=== PATIENT | female | born 1965 | race Caucasian/White ===

== ENCOUNTER → 2019-03-21 | Outpatient (CLI) | payer SELFPAY | PROVIDERS: Family Provider Internal Medicine; Visit Provider Internal Medicine | DX: Z79.51 Long term (current) use of inhaled steroids (principal); M85.80 Other specified disorders of bone density and structure, unspecified site | CPT/HCPCS: 77080 ==

== ENCOUNTER 2019-10-06 11:47 | Outpatient (CLI) | payer MEDICARE, MEDICAID, SELFPAY ==
--- NOTE | 2019-10-06 11:54 | MM_ITS ---
WS: [id number] BILATERAL DIGITAL DIAGNOSTIC MAMMOGRAM MAMMOGRAPHY WITH CAD CLINICAL INFORMATION: 6 MO F/U POST SURGERY RT BREAST COMPARISON: TECHNIQUE: Bilateral CC, MLO, and ML views. FINDINGS: Scattered fibroglandular densities bilaterally. Stable punctate calcifications. Focal asymmetric dens ity upper outer right breast unchanged. Biopsy clip upper outer right breast. Ultrasound is pending. Left breast is unchanged. ULTRASOUND BREAST RIGHT TECHNIQUE: Ultrasound right breast focused area of concern. CLINICAL INFORMATION: 6 MO F/U POST SURGERY RT BREAST COMPARISON: 2018 FINDINGS: Ultrasound right breast the 2:00 position 4 cm from the nipple. Tiny hypoechoic lesion measuring 7 x 3 x 7 mm. This is decreased in size from previous. Recommend return to annual screening mammography. MM/[place] [id number] IMPRESSION: BI-RADS: 2-Benign FOLLOW UP: 1 Year Follow-up Recommend return to annual screening mammography.
== END 2019-10-06 11:48 | disposition home or self-care (01) ==
LOC: RADSHAW 11:53
PROVIDERS: PCP Internal Medicine; Visit Provider Internal Medicine
DX: Z12.31 Encounter for screening mammogram for malignant neoplasm of breast (principal); N64.89 Other specified disorders of breast
CPT/HCPCS: 76642; 77066

== ENCOUNTER 2019-10-31 11:47 | Outpatient (CLI) | payer MEDICARE, MEDICAID, SELFPAY ==
--- NOTE | 2019-10-31 12:43 | XRR_ITS ---
PROCEDURE INFORMATION: Exam: XR Right Knee Exam date and time: 10/31/2019 1:03 PM Age: 54 years old Clinical indication: Pain; Swelling or effusion of joint; Knee; Right; Additional info: Pain and swelling R knee x 3 years TECHNIQUE: Imaging protocol: XR Right knee. Views: 3 views. COMPARISON: CR Knee 3 views, RIGHT* [id number] 04/18/2014 11:48 AM FINDINGS: Bones/joints: There is no evidence for acute fracture or malalignment. No joint space narrowing or osteophyte formation. Soft tissues: Normal. XR/XR knee RT 3V* [id number] IMPRESSION: No acute findings.
== END 2019-10-31 11:48 | disposition home or self-care (01) ==
LOC: RAD 11:51
PROVIDERS: PCP Internal Medicine; Visit Provider Internal Medicine
DX: M25.561 Pain in right knee (principal); M79.89 Other specified soft tissue disorders
CPT/HCPCS: 73562

== ENCOUNTER 2019-12-11 14:16 | Outpatient (CLI) | payer MEDICARE, MEDICAID, SELFPAY ==
--- NOTE | 2019-12-11 14:23 | XRR_ITS ---
PROCEDURE INFORMATION: Exam: XR Right Foot Complete Exam date and time: 12/11/2019 2:40 PM Age: 54 years old Clinical indication: Injury or trauma; Fall; Initial encounter; Blunt trauma; Foot; Right; Injury date: 1 week ago; Additional info: Pain in R foot/s/p fall TECHNIQUE: Imaging protocol: XR Right foot. Views: 3 or more views. COMPARISON: No relevant prior studies available. FINDINGS: Bones/joints: There is no evidence for acute fracture or malalignment. Soft tissues: Normal. XR/XR foot RT min 3V* [id number] IMPRESSION: No acute findings.
== END 2019-12-11 14:17 | disposition home or self-care (01) ==
LOC: RAD 14:20
PROVIDERS: PCP Internal Medicine; Visit Provider Internal Medicine
DX: M79.671 Pain in right foot (principal); W19.XXXA Unspecified fall, initial encounter
CPT/HCPCS: 73630

== ENCOUNTER → 2020-06-18 13:58 | Outpatient (BNVA) | payer MEDICARE, MEDICAID, SELFPAY | PROVIDERS: PCP Internal Medicine; Visit Provider Podiatrist Foot & Ankle Surgery | DX: M25.572 Pain in left ankle and joints of left foot (principal); Z46.89 Encounter for fitting and adjustment of other specified devices; M79.672 Pain in left foot; M72.2 Plantar fascial fibromatosis | CPT/HCPCS: 73610; 73630; 97760; L1902 ==

== ENCOUNTER 2020-06-18 14:49 | Outpatient (CLI) | payer MEDICARE, MEDICAID, SELFPAY | END 2020-06-18 14:50 | disposition home or self-care (01) | LOC: SPT 14:50 | PROVIDERS: PCP Internal Medicine; Visit Provider Podiatrist Foot & Ankle Surgery | DX: Z46.89 Encounter for fitting and adjustment of other specified devices (principal); M79.672 Pain in left foot; M72.2 Plantar fascial fibromatosis | CPT/HCPCS: 97760; L1902 ==

== ENCOUNTER 2020-07-23 16:31 | Outpatient (CLI) | payer MEDICARE, MEDICAID, SELFPAY ==
--- NOTE | 2020-07-23 16:56 | XR_ITS ---
WS: [id number] Lumbar spine, 3 views, 07/23/2020 Clinical Data: PAIN, S/P TRAUMA Comparison: Lateral lumbar spine, 07/16/2016. Findings: No compression fractures or subluxation is seen. Mild degenerative disc narrowing at L3-L4 is seen.. The transverse processes and SI joints are normal. Minimal osteoarthritic spurring at L3-L5 is noted. XR/XR lumbar spine 2-3V* [id number] Impression: 1. Minimal osteoarthritis L3-L5. 2. Degenerative disc narrowing at L3-L4.
--- NOTE | 2020-07-23 16:56 | XR_ITS ---
WS: [id number] Thoracic spine, 3 views, 07/23/2020 Clinical Data: PAIN, S/P TRAUMA Comparison: Thoracic spine, 03/02/2012. Findings: No compression fractures are seen. The disc heights are normal. The paravertebral regions are normal. XR/XR thoracic spine 3V* [id number] Impression: Negative thoracic spine.
== END 2020-07-23 16:32 | disposition home or self-care (01) ==
PROVIDERS: PCP Internal Medicine; Visit Provider Internal Medicine
DX: M54.5 Low back pain (principal); M47.816 Spondylosis without myelopathy or radiculopathy, lumbar region
CPT/HCPCS: 72072; 72100

== ENCOUNTER → 2021-02-17 09:57 | Outpatient (BNVA) | payer MEDICARE, MEDICAID, SELFPAY | PROVIDERS: PCP Internal Medicine; Referring Provider Internal Medicine; Visit Provider Surgery | DX: Z20.822 Contact with and (suspected) exposure to COVID-19 (principal); K64.9 Unspecified hemorrhoids; Z80.0 Family history of malignant neoplasm of digestive organs; R19.7 Diarrhea, unspecified; K92.1 Melena | CPT/HCPCS: 87635 ==

== ENCOUNTER 2021-02-19 09:11 | Day surgery (SDC) | payer MEDICARE, MEDICAID, SELFPAY ==
[2021-02-18 17:20] VITALS: BMI 29.2
[2021-02-19] VITALS (7 sets, daily range): BP systolic 110–136; BP diastolic 60–78; PULSE 60–74; RESP 15–17; TEMP 36.2–36.6; O2SAT 96–98
--- NOTE | 2021-02-19 09:38 | W.PM.OPSUD ---
Surgery/Procedure H&P Update DATE OF PROCEDURE: February 19, 2021 DATE H&P PERFORMED: 02/17/21 H&P UPDATE INFORMATION: I have reviewed H&P completed within last 30 days, I have examined patient prior to procedure and No changes to prior documentation PREOP DIAGNOSIS: Hematochezia, hemorrhoids PLANNED PROCEDURE: Operation Date: 02/19/21 12:40 Proposed Procedures p Hemorroidectomy 14792 K64.9(Not Applicable) - Dick Johnson MD s Colonoscopy 39453 Z80.0(Not Applicable) - Dick Johnson MD
[2021-02-19] MEDS: sodium chloride 0.9% 1,000 ML 30 ML IV (10:10)
--- NOTE | 2021-02-19 10:19 | ANES.PREANE2 ---
Pre-Anesthetic Assessment Pre-Anesthetic Assessment: Height/Weight: Height 1.6 m Weight 74.843 kg Temp Pulse Resp BP Pulse Ox 97.5 F L 62 16 115/60 98 02/19/21 09:54 02/19/21 09:54 02/19/21 09:54 02/19/21 09:54 02/19/21 09:54 Preop Diagnosis: Hematochezia, hemorrhoids Proposed Procedure: Operation Date: 02/19/21 12:40 Proposed Procedures p Hemorroidectomy 76069 K64.9(Not Applicable) - Dick Johnson MD s Colonoscopy 79524 Z80.0(Not Applicable) - Dick Johnson MD Was Beta Florencio taken within 24 hours: Yes Was Clonidine taken within 24 hours: N/A Last intake: Intake Last Liquid Date 02/18/21 Last Liquid Time 19:00 Last Solid Date 02/17/21 Last Solid Time 16:00 Social: Social History: No alcohol and No tobacco Exam: Pre-Anes Outpt Exam: alert, oriented x 3, clear to auscultation bilaterally and regular rate & rhythm Airway: Submandibular: WNL Cervical ROM: WNL MP: 2 Dentition: Chipped Neuropsych: Neuropsych: Anxiety, Depression, HANEY and Neuropathy Anesthetic Plan: ASA status: 2 Anesthesia: Choice Risk of > 500 ml blood loss (7ml/kg in children): No Meds/Allergies Current Medications: Current Medications Generic Name Dose Route Start Last Admin Trade Name Freq PRN Reason Stop Dose Admin Sodium Chloride 1,000 mls @ 30 ml s/hr 02/19/21 09:00 02/19/21 10:10 Sodium Chloride 0.9% IV 02/20/21 08:59 30 mls/hr .Q24H NOHEMI Administration PFSH Anesthesia PFSH: Medical History (Updated 02/17/21 @ 10:24 by Dick Johnson MD) Anxiety Chronic pain Depression Fibromyalgia Hemorrhoids History of nonmelanoma skin cancer Small fiber neuropathy Vitamin B12 deficiency Surgical History (Updated 02/17/21 @ 09:43 by Dick Johnson MD) History of colonoscopy 1988 History of eye surgery socket- wires in place 1984 History of hysterectomy History of tonsillectomy 1966 Family History Mother Psychiatric illness Depression Migraines Thyroid disorder Father Cancer Lung Lung disease Social History Smoking and tobacco status: former smoker Second hand smoke exposure: Yes Alcohol intake: never History of recent travel: No Data Anesthesia Cardiac Studies: No Data to Display
--- NOTE | 2021-02-19 12:13 | PM.OP ---
Operative Report Date of procedure: February 19, 2021 Pre-op Diagnosis: 1. Family history of colon cancer 2. Hematochezia Post-op Diagnosis: 1. Anal fissure 2. Mild sigmoid diverticulosis -repeat colonoscopy in 5 years due to family history Procedure Done: 1. Colonoscopy past splenic flexure without biopsy 2. Banding of hemorrhoid x1 Specimens removed/disposition: Stool studies and culture due to history of diarrhea Surgeon: Dick Johnson Anesthesia: MAC Condition: stable Disposition: PACU Procedure: The patient was taken to the operating room and placed in left lateral position under MAC a digital rectal exam revealed a small grade 1 internal hemorrhoids. The colonoscope was introduced and advanced up to cecum with ileocecal valve and appendicular orifice was visualized. The colon prep was fair. Cecum: Normal Ascending colon: Normal Transverse colon: Normal Descending colon: Normal Sigmoid colon: Mild diverticulosis Rectum: Normal, grade 1 internal hemorrhoid The colonoscope was withdrawn. An anoscope was introduced and there was a small posterior anal fissure noted. There was a grade 1 internal hemorrhoid noted on the left lateral side. The hemorrhoid was grasped above the dentate line and using a band applicator rubber band x2 were applied. The patient was transferred to the recovery room in stable condition.
--- NOTE | 2021-02-19 13:23 | ANE.PACU2 ---
Inpatient post-anesthesia follow up: Airway intact: Yes Vital signs: Temperature 98 F Pulse Rate 64 Respiratory Rate 15 Blood Pressure 121/71 Pulse Oximetry 98 Oxygen Delivery Me thod Room Air Oxygen Flow Rate Fraction of Inspir ed Oxygen Hydration adequate: Yes Nausea and vomiting: No Pain level: 2 Mental status: Baseline
== END 2021-02-19 13:05 | disposition home or self-care (01) ==
PROVIDERS: PCP Internal Medicine; Visit Provider Surgery
PROC: (CPT 45378; principal; 2021-02-19 12:30)
PROC: 0DJD8ZZ Inspection of Lower Intestinal Tract, Via Natural or Artificial Opening Endoscopic (ICD-10-PCS; CPT 45378; 2021-02-19 12:30)
DX: K92.1 Melena (principal); Z80.0 Family history of malignant neoplasm of digestive organs; K60.2 Anal fissure, unspecified; K57.30 Diverticulosis of large intestine without perforation or abscess without bleeding; K64.8 Other hemorrhoids; Z87.891 Personal history of nicotine dependence
CPT/HCPCS: 45378; 46221; 82274; 83630; 87493; 87506; 96365; J0690; J2250; J2704; J3010; J7030

== ENCOUNTER 2021-02-21 10:43 | Outpatient (CLI) | payer MEDICARE, MEDICAID, SELFPAY ==
--- NOTE | 2021-02-21 10:50 | MM_ITS ---
WS: [id number] Bilateral screening digital mammogram, 02/21/2021 Clinical Data: SCREENING Comparison: 10/06/2019, 09/28/2018, 09/01/2018, 08/19/2017, 03/31/2016, 07/03/2014, 04/19/2012. Findings: The breast parenchymal pattern shows fibroglandular tissue. No spiculated masses or clustered calcifi cations are seen. There are no secondary signs of carcinoma. There is a biopsy clip in the upper oute r quadrant of the right breast. MM/[place] [id number] Impression: 1. Negative bilateral mammogram unchanged. 2. Recommend annual screening mammograms. BIRADS: 1-Negative FOLLOW UP: 1 Year Follow-up The CAD checkering machine adjuster was used.
== END 2021-02-21 10:44 | disposition home or self-care (01) ==
LOC: RADSHAW 10:47
PROVIDERS: PCP Internal Medicine; Visit Provider Internal Medicine
DX: Z12.31 Encounter for screening mammogram for malignant neoplasm of breast (principal)
CPT/HCPCS: 77067

== ENCOUNTER 2021-11-05 12:30 | Outpatient (CLI) | payer MEDICARE, MEDICAID, SELFPAY ==
--- NOTE | 2021-11-05 12:47 | XR_ITS ---
WS: [id number] SCREENING DEXA SCAN [employer] CLINICAL INFORMATION: ASYMPTOMATIC POSTMENOPAUSAL STATUS COMPARISON: FINDINGS: The L1-L4 bone mineral density measures 1.066 g/cm2. This corresponds to a T score score of -0.9 and Z score of -0.4. Left femoral neck bone mineral density measures 0.652 g/cm2. This corresponds to a T score of -2.8 an d Z score of -2.4. Right femoral neck bone mineral density measures 0.651 g/cm2. This corresponds to a T score -2.8of an d Z score of -2.4. Mean femoral neck bone mineral density measures 0.651 g/cm2. This corresponds to a T score of -2.8 an d Z score of -2.4. XR/XR DEXA axial skeleton* [id number] IMPRESSION: Normal bone mineralization lumbar spine approaching osteopenia. Osteoporosis fe moral necks. Patient's FRAX calculated 10 year probability for major osteoporotic fracture i s 52.6 % and osteoporotic hip fracture is 12.0%. Bone mineralization lumbar spine increased +0.8% since 2019. Bone mineralization femoral necks decreased -17.6% since 2019.
== END 2021-11-05 12:31 | disposition home or self-care (01) ==
PROVIDERS: PCP Internal Medicine; Visit Provider Internal Medicine
DX: Z78.0 Asymptomatic menopausal state (principal)
CPT/HCPCS: 77080

== ENCOUNTER 2021-12-16 12:56 | Outpatient (CLI) | payer MEDICARE, MEDICAID, SELFPAY ==
--- NOTE | 2021-12-16 13:14 | XR_ITS ---
WS: [id number] Exam: XR KUB [id number] Date/Time of Exam: 12/16/2021 1:20 PM Reason For Exam: HEMATURIA No bowel obstruction or free air. No sign of organ enlargement. Moderate amount retained stool in the colon. Regional bony elements appear normal. XR/XR KUB [id number] IMPRESSION: 1. No acute abdominal finding. Moderate amount of stool in the colon.
== END 2021-12-16 12:57 | disposition home or self-care (01) ==
PROVIDERS: PCP Internal Medicine; Visit Provider Internal Medicine
DX: R31.9 Hematuria, unspecified (principal)
CPT/HCPCS: 74018

== ENCOUNTER 2022-01-15 10:05 | Outpatient (CLI) | payer MEDICARE, MEDICAID, SELFPAY ==
--- NOTE | 2022-01-15 10:16 | MM_ITS ---
WS: [id number] ADDITIONAL VIEWS RIGHT MAMMOGRAM WITH DIGITAL BREAST TOMOSYNTHESIS. RIGHT BREAST ULTRASOUND HISTORY: RT BREAST MASS COMPARISON: 02/21/2021, 10/06/2019, 09/28/2018, 10/06/2019 and 09/28/2018, 03/31/2016 RIGHT MAMMOGRAM: Spot compression views and true ML with digital breast tomosynthesis and SM. Triangular marker corresponds to an asymmetry in the upper outer quadrant of the RIGHT breast. Prior biopsy clip is also noted in the upper outer quadrant closely associated with the asymmetry. Asymmetr y measures 1.5 x 1.7 cm. No interval business change manager several years. No additional abnormality is noted. RIGHT BREAST ULTRASOUND 2-D and color Doppler imaging submitted. Ultrasound is directed in the upper outer quadrant of the RIGHT breast. No abnormality is identified. There is no shadowing or mass. MM/[place] [id number] IMPRESSION: BI-RADS: 2-Benign FOLLOW UP: 1 Year Follow-up
== END 2022-01-15 10:06 | disposition home or self-care (01) ==
PROVIDERS: PCP Internal Medicine; Visit Provider Internal Medicine
DX: N64.89 Other specified disorders of breast; N63.11 Unspecified lump in the right breast, upper outer quadrant
CPT/HCPCS: 76642; 77061

== ENCOUNTER 2022-05-25 14:01 | Outpatient (CLI) | payer MEDICARE, MEDICAID, SELFPAY ==
--- NOTE | 2022-05-25 14:23 | XRR_ITS ---
PROCEDURE INFORMATION: Exam: XR Lumbosacral Spine Exam date and time: 05/25/2022 3:05 PM Age: 57 years old Clinical indication: Prior surgery; Surgery type: Prt hysterectomy; Patient HX: Low back pain x few months. Hurts when sitting and when barimetric pressure drops; Additional info: Degenerative disc dz, lumbosacral spine w/radiculopathy TECHNIQUE: Imaging protocol: Radiologic exam of the lumbosacral spine. Views: 4 or 5 views. COMPARISON: CR XR lumbar spine 2-3V* [id number] 07/23/2020 5:08 PM FINDINGS: Bones/joints: Mild degenerative disc disease reflected as a decrease in disc space height and anterior endplate osteophytosis. No spondylolisthesis. No pars defect. No fracture. Soft tissues: Unremarkable. XR/XR lumbar spine min 4V [id number] IMPRESSION: Mild diffuse degenerative disc disease with moderate disc space narrowing L3-L4.
== END 2022-05-25 14:02 | disposition home or self-care (01) ==
PROVIDERS: PCP Internal Medicine; Visit Provider Internal Medicine
DX: M51.17 Intervertebral disc disorders with radiculopathy, lumbosacral region (principal); M51.36 Other intervertebral disc degeneration, lumbar region
CPT/HCPCS: 72110

== ENCOUNTER 2022-06-28 07:12 | Emergency (ER) | payer MEDICARE, MEDICAID, SELFPAY ==
--- NOTE | 2022-06-28 07:25 | XRR_ITS ---
PROCEDURE INFORMATION: Exam: XR Chest Exam date and time: 06/28/2022 7:52 AM Age: 57 years old Clinical indication: Shortness of breath; Additional info: SOB, fever, cough TECHNIQUE: Imaging protocol: Radiologic exam of the chest. Views: 1 view. COMPARISON: CR XR chest 2V* [id number] 08/09/2016 5:02 PM FINDINGS: Lungs: Unremarkable. No consolidation. Pleural spaces: Unremarkable. No pleural effusion. No pneumothorax. Heart/Mediastinum: Unremarkable. No cardiomegaly. Bones/joints: Unremarkable. XR/XR chest 1V portable [id number] IMPRESSION: No acute findings.
[2022-06-28 07:38] VITALS: BP 132/85; PULSE 76; RESP 20; TEMP 36.8; O2SAT 97
--- NOTE | 2022-06-28 07:39 | ED_ITS ---
HPI - URI/Sore Throat General: Chief Complaint: Shortness of Breath/Dyspnea Stated Complaint: sob, fever, cough Time Seen by Provider: 06/28/22 07:16 Source: patient Mode of arrival: ambulatory Limitations: no limitations History of Present Illness: Patient is a very nice 57-year-old female who presents to ED today with a complaint of cough, fevers, and shortness of breath. She states approximately a month ago she began having some rhinorrhea and a mild cough. She was diagnosed with allergies and started on allergy medication and albuterol inhaler. Patient initially felt like she was improving however over the past week or two, symptoms have progressively worsened. At some point she was placed on Azithromycin and states she finished that last week. She states she is coughing up very thick sputum. Fevers have been intermittent but documented up to 102. She is reporting dyspnea. No chest pain. She has no underlying pulmonary problems such as COPD/emphysema. Patient is not a smoker. She arrives to the emergency department with normal vital signs. MD elicited complaint: fever, cough and other (sob) Onset (ago): day(s) Consistency: constant Severity: moderate Description of mucous: yellow and green Able to tolerate fluids by mouth: Yes Exacerbating factors: nothing Relieving factors: nothing Associated symptoms: Reports chills, fever(s), nasal congestion and short of breath; Deny abdominal pain, chest pain, diarrhea, ear or mastoid pain, headache(s), nausea, sinus pain or vomiting Treatments prior to arrival: other (allergy medication/albuterol inhaler) Review of Systems Const: Reports: fever(s), chills, body aches, fatigue and malaise; Denies: night sweats Eyes: Denies: change in vision, blurry vision or photophobia ENMT: Reports: nasal discharge and nasal congestion; Denies: throat pain, odynophagia, ear or mastoid pain, ear discharge, post nasal drip or sinus pain Card: Reports: dyspnea on exertion; Denies: chest pain, palpitations, irregular heart rhythm, edema, swelling of feet/ankles, lightheadedness, syncope, pre-syncope, orthopnea, leg pain with exertion or acrocyanosis Resp: Reports: dyspnea, productive cough, pain on inspiration, change in phlegm color and chest congestion; Denies: non-productive cough, wheezing, stridor or hemoptysis GI: Denies: abdominal pain, nausea, vomiting or diarrhea : Denies: flank pain, dysuria or hematuria Musc: Denies: neck pain, back pain, extremity pain or joint pain Skin/Breast: Denies: rash Neuro: Denies: headache(s) or dizziness PFSH ED PFSH: Medical History Anxiety Chronic pain Depression Fibromyalgia Hemorrhoids History of nonmelanoma skin cancer Small fiber neuropathy Vitamin B12 deficiency Surgical History History of colonoscopy (02/19/21) banding of hemorrhoid x1 diverticulosis History of eye surgery socket- wires in place 1985 History of hysterectomy History of tonsillectomy 1966 Family History Mother Psychiatric illness Depression Migraines Thyroid disorder Father Cancer Lung Lung disease Social History Smoking and tobacco status: never smoked Second hand smoke exposure: Yes Alcohol intake: never Physical Exam Const: COMMON NORMALS: no acute distress, average body habitus, patient oriented x3, no limitations, healthy appearing, alert and well nourished GENERAL APPEARANCE: cooperative ORIENTATION/CONSCIOUSNESS: Yes awake, Yes oriented to person, Yes oriented to place and Yes oriented to time HENMT: COMMON NORMALS: normocephalic, atraumatic and Normal external nose present HEAD & SCALP: normal to inspection, normocephalic and atraumatic FACE & SINUS: normal facial exam NOSE: Normal external nose present THROAT: posterior oropharynx normal, tonsils normal and uvula midline Eye: GENERAL EYE: appearance normal, both eyes and all related structures Neck/C-Spine: COMMON NORMALS: full ROM, no lymphadenopathy, supple and no meningeal signs Chest: COMMONS NORMALS: normal inspection of the chest and normal palpation of entire chest wall Resp: COMMON NORMALS: normal respiratory effort, No retractions and No use of accessory muscles EFFORT & INSPECTION: Yes able to speak in complete sentences (although visibly appears winded ) AUSCULTATION: crackles Laterality: left Cardio: COMMON NORMALS: regular rate and regular rhythm RATE: regular rate RHYTHM: regular rhythm GI: COMMON NORMALS: Normal to inspection, nondistended, normoactive bowel sounds present, Soft to palpation, non-tender, No hepatosplenomegaly present and no masses PALPATION: Yes Soft to palpation and Yes No hepatosplenomegaly present : COMMON NORMALS: Yes no CVA tenderness BLADDER/KIDNEY EXAM: Yes no CVA tenderness Back/Pelvis: COMMON NORMALS: no CVA tenderness and thoracic and lumbar spine normal to inspection Extremity: COMMON NORMALS: normal to inspection, capillary refill normal, no joint enlargement, no clubbing, cyanosis or edema, no calf tenderness and no pedal edema GENERAL: Yes normal exam except as noted Neuro: NIKOS COMA SCALE: document GCS findings Foreman coma scale eye opening: Spontaneous Nikos coma scale verbal response: Orientated Foreman coma scale motor response: Obey commands Foreman coma scale total score: 15 COMMON NORMALS: patient oriented x3 SENSORIUM/ORIENTATION: Yes alert, Yes oriented to person, Yes oriented to place and Yes oriented to time MENINGEAL SIGNS: Yes no meningeal signs Skin: COMMON NORMALS: no rashes or lesions noted GENERAL SKIN EXAM: no rashes or lesions noted Course Vital Signs: Vital signs: Vital Signs Temperature 98.2 F 06/28/22 07:38 Pulse Rate 74 06/28/22 08:44 Respiratory Rate 20 H 06/28/22 07:38 Blood Pressure 129/83 06/28/22 08:44 Pulse Oximetry 93 06/28/22 08:44 Oxygen Delivery Me thod 06/28/22 07:38 MDM - URI/Sore Throat Medical Decision Making Patient is a 57-year-old female here for upper respiratory symptoms. Vital signs are stable upon arrival. CXR is normal. Blood work is reassuring with a normal white count and a normal procalcitonin. Respiratory panel collected and pending. I think based on progressive symptoms it is appropriate to place patient on antibiotics and a steroid taper. She does have an albuterol inhaler she can continue using. Recommend follow-up with primary care this week if symptoms do not seem to be improving. Return to ED precautions were verbally discussed with patient. Lab Data 06/28/22 08:06 06/28/22 08:06 Radiology Impressions Chest X-Ray 06/28/22 07:25 IMPRESSION: No acute findings. Laboratory Results WBC 8.7 10^3/uL (4.0-10.0) 06/28/22 08:06 RBC 4.22 10^6/uL (4.1-5.3) 06/28/22 08:06 Hgb 12.7 g/dL (11.5-15.3) 06/28/22 08:06 Hct 40.8 % (37.0-47.0) 06/28/22 08:06 MCV 96.7 fl (81-99) 06/28/22 08:06 MCH 30.1 pg (28.0-34.0) 06/28/22 08:06 MCHC 31.1 g/dL (30.0-36.0) 06/28/22 08:06 RDW 12.8 % (12.1-15.1) 06/28/22 08:06 Plt Count 196 10^3/cmm (130-400) 06/28/22 08:06 MPV 11.1 fL (7.4-10.4) H 06/28/22 08:06 Neut % (Auto) 74.5 % 06/28/22 08:06 Lymph % (Auto) 13.2 % 06/28/22 08:06 [place] % (Auto) 6.5 % 06/28/22 08:06 Eos % (Auto) 5.1 % 06/28/22 08:06 Baso % (Auto) 0.6 % 06/28/22 08:06 Neut # (Auto) 6.45 10^3/uL (1.8-7.7) 06/28/22 08:06 Lymph # (Auto) 1.1 10^3/uL (0.8-4.8) 06/28/22 08:06 [place] # (Auto) 0.6 10^3/uL (0.2-0.9) 06/28/22 08:06 Eos # (Auto) 0.4 10^3/uL (0.0-0.8) 06/28/22 08:06 Baso # (Auto) 0.1 10^3/uL (0.0-0.1) 06/28/22 08:06 Nucleated RBC % (auto) 0 % 06/28/22 08:06 Nucleated RBCs # 0.0 /100WBC 06/28/22 08:06 Sodium 135 mmol/L (136-145) L 06/28/22 08:06 Potassium 3.9 mmol/L (3.5-5.1) 06/28/22 08:06 Chloride 99 mmol/L (98-107) 06/28/22 08:06 Carbon Dioxide 26 mmol/L (22-29) 06/28/22 08:06 Anion Gap 13.9 (5-19) 06/28/22 08:06 BUN 6 mg/dL (6-20) 06/28/22 08:06 Creatinine 0.6 mg/dL (0.5-0.9) 06/28/22 08:06 GFR Calculation 102.7 mL/min (90-130) 06/28/22 08:06 Glucose 102 mg/dL (65-115) 06/28/22 08:06 Calculated Osmolality 278 mOsm/kg (285-295) L 06/28/22 08:06 Calcium 9.5 mg/dL (8.5-10.5) 06/28/22 08:06 Total Bilirubin 0.5 mg/dL (0.15-1.2) 06/28/22 08:06 AST 16 U/L (0-32) 06/28/22 08:06 ALT 22 U/L (0-33) 06/28/22 08:06 Alkaline Phosphatase 86 U/L (35-105) 06/28/22 08:06 Total Protein 7.1 g/dL (6.6-8.7) 06/28/22 08:06 Albumin 4.7 g/dL (3.5-5.2) 06/28/22 08:06 Globulin 2.4 g/dL (1.3-4.6) 06/28/22 08:06 Procalcitonin 0.05 ng/mL (0-0.5) 06/28/22 08:06 Discharge Plan Discharge Patient Disposition: Home Clinical Impression: Bronchitis Condition: Stable Prescriptions: New levofloxacin 500 mg tablet 500 mg PO DAILY 7 Days Qty: 7 0RF prednisone 10 mg tablet 60 mg PO DAILY 5 Days Qty: 30 0RF No Action propranolol 40 mg tablet 20 mg PO BID alprazolam [Xanax] 0.25 mg tablet 0.5 mg PO Q8H PRN (Reason: Anxiety) tramadol 50 mg tablet 50 mg PO TID PRN (Reason: Pain) venlafaxine 37.5 mg capsule,extended release 24hr 37.5 mg PO Compound W 40 % adhesive patch,medicated 1 applic topical .qdaily Qty: 20 2RF Rx Instructions: Apply nightly. May skip a night if becomes too tender Discharge Orders: Discharge ED (Routine); Ordered 06/28/22 Ordered By: Kat White Referrals: Dolores Cuello MD [Primary Care Provider] - Patient Instructions: Bronchitis (Acute) - Adult, Acute Bronchitis (ED) Coding Level of Care Code ED Help Desk Technician for Joaquín Pratt
[2022-06-28 08:16] LABS: Basophils # 0.1 10^3/uL (0.0-0.1); Basophils % 0.6 %; Eosinophils # 0.4 10^3/uL (0.0-0.8); Eosinophils % 5.1 %; Hematocrit 40.8 % (37.0-47.0); Hemoglobin 12.7 g/dL (11.5-15.3); Lymphocytes # 1.1 10^3/uL (0.8-4.8); Lymphocytes % 13.2 %; Mean Corpuscular HGB Conc 31.1 g/dL (30.0-36.0); Mean Corpuscular Hemoglobin 30.1 pg (28.0-34.0); Mean Corpuscular Volume 96.7 fl (81-99); Mean Platelet Volume 11.1 fL (7.4-10.4); Monocytes # 0.6 10^3/uL (0.2-0.9); Monocytes % 6.5 %; Neutrophils # 6.45 10^3/uL (1.8-7.7); Neutrophils % 74.5 %; Nucleated Red Blood Cells % 0 %; Platelet Count 196 10^3/cmm (130-400); Red Blood Count 4.22 10^6/uL (4.1-5.3); Red Cell Distribution Width 12.8 % (12.1-15.1); White Blood Count 8.7 10^3/uL (4.0-10.0)
[2022-06-28 08:39] LABS: Alanine Aminotransferase 22 U/L (0-33); Albumin Level 4.7 g/dL (3.5-5.2); Alkaline Phosphatase 86 U/L (35-105); Anion Gap 13.9 (5-19); Aspartate Amino Transferase 16 U/L (0-32); Blood Urea Nitrogen 6 mg/dL (6-20); Calcium 9.5 mg/dL (8.5-10.5); Carbon Dioxide 26 mmol/L (22-29); Chloride 99 mmol/L (98-107); Creatinine Clr Calc Pharmacy 99.9059; Globulin 2.4 g/dL (1.3-4.6); Glomerular Filtration Rate 102.7 mL/min (90-130); Glucose 102 mg/dL (65-115); Osmolality Calculated 278 mOsm/kg (285-295); Potassium 3.9 mmol/L (3.5-5.1); Sodium 135 mmol/L (136-145); Total Bilirubin 0.5 mg/dL (0.15-1.2); Total Protein 7.1 g/dL (6.6-8.7)
[2022-06-28 08:44] VITALS: BP 129/83; PULSE 74; O2SAT 93
[2022-06-28 08:45] LABS: Procalcitonin 0.05 ng/mL (0-0.5)
[2022-06-28 09:06] VITALS: BP 135/81; PULSE 73; O2SAT 92
[2022-06-28 10:08] LABS: Adenovirus Not Detected (NOT DETECT); Chlamydia Pneumoniae Not Detected (NOT DETECT); Coronavirus 229E,HKU1,NL63,OC4 Not Detected (NOT DETECT); Human Metapneumovirus Not Detected (NOT DETECT); Human Rhinovirus/Enterovirus Detected (NOT DETECT); Influenza A Not Detected (NOT DETECT); Influenza A H1 Not Detected (NOT DETECT); Influenza A H1-2009 Not Detected (NOT DETECT); Influenza A H3 Not Detected (NOT DETECT); Influenza B Not Detected (NOT DETECT); Mycoplasma Pneumoniae Not Detected (NOT DETECT); Parainfluenza Virus Type 1 Not Detected (NOT DETECT); Parainfluenza Virus Type 2 Not Detected (NOT DETECT); Parainfluenza Virus Type 3 Not Detected (NOT DETECT); Parainfluenza Virus Type 4 Not Detected (NOT DETECT); Respiratory Syncytial Virus A Not Detected (NOT DETECT); Respiratory Syncytial Virus B Not Detected (NOT DETECT); SARS-COV-2 Not Detected (NOT DETECT)
== END 2022-06-28 09:08 | disposition home or self-care (01) ==
PROVIDERS: Emergency Provider Physician Assistant; PCP Internal Medicine
DX: J40 Bronchitis, not specified as acute or chronic (principal); Z77.22 Contact with and (suspected) exposure to environmental tobacco smoke (acute) (chronic)
CPT/HCPCS: 36415; 71045; 80053; 84145; 85025; 87486; 87581; 87633; 99284

== ENCOUNTER → 2022-07-31 09:41 | Outpatient (BNVA) | payer MEDICARE, MEDICAID, SELFPAY | PROVIDERS: PCP Internal Medicine; Visit Provider Nurse Practitioner Family | DX: B07.8 Other viral warts (principal); L72.0 Epidermal cyst; S30.861A Insect bite (nonvenomous) of abdominal wall, initial encounter; W57.XXXA Bitten or stung by nonvenomous insect and other nonvenomous arthropods, initial encounter | CPT/HCPCS: 99213 ==

== ENCOUNTER 2023-01-07 13:55 | Outpatient (CLI) | payer MEDICARE, MEDICAID, SELFPAY ==
--- NOTE | 2023-01-07 14:23 | XR_ITS ---
WS: [id number] Left knee, 3 views, 01/07/2023 Clinical Data: PAIN IN LEFT KNEE Comparison: None. Findings: No fractures or dislocations are seen. There is minimal medial joint compartment narrowing with a sma ll spur of the medial femoral condyle. The patella is intact without spurring. The soft tissues are u nremarkable. Impression: Minimal medial joint compartment narrowing of the left knee. Kellgren-Ermias Classification: grade 1 (doubtful): doubtful joint space narrowing and possible ost eophytic lipping
== END 2023-01-07 13:56 | disposition home or self-care (01) ==
PROVIDERS: PCP Internal Medicine; Visit Provider Internal Medicine
DX: M25.562 Pain in left knee (principal)
CPT/HCPCS: 73562

== ENCOUNTER 2023-02-02 10:35 | Outpatient (CLI) | payer MEDICARE, MEDICAID, SELFPAY ==
--- NOTE | 2023-02-02 10:45 | MM_ITS ---
WS: [id number] BILATERAL 3D TOMOSYNTHESIS DIGITAL SCREENING MAMMOGRAPHY WITH CAD CLINICAL INFORMATION: SCREENING HISTORY: Screening mammogram. Benign RIGHT breast biopsy. COMPARISON: 2020 TECHNIQUE: Bilateral CC and MLO views. FINDINGS: Scattered fibroglandular densities bilaterally. No suspicious focal mass, asymmetry, calcifications, or architectural distortion. No evidence of malignancy. Punctate and lucent centered calcifications. Biopsy clip RIGHT breast. IMPRESSION: MM/[place] [id number] BI-RADS: 2-Benign FOLLOW UP: 1 Year Follow-up Recommend return to annual screening mammography.
== END 2023-02-02 10:36 | disposition home or self-care (01) ==
LOC: RAD 10:35
PROVIDERS: PCP Internal Medicine; Visit Provider Internal Medicine
DX: Z12.31 Encounter for screening mammogram for malignant neoplasm of breast (principal)
CPT/HCPCS: 77063; 77067

== ENCOUNTER → 2023-02-16 15:11 | Outpatient (BNVA) | payer MEDICARE, MEDICAID, SELFPAY | PROVIDERS: PCP Internal Medicine; Visit Provider Nurse Practitioner Family | DX: Z08 Encounter for follow-up examination after completed treatment for malignant neoplasm (principal); Z85.828 Personal history of other malignant neoplasm of skin; L82.0 Inflamed seborrheic keratosis; L57.0 Actinic keratosis; L72.0 Epidermal cyst; L98.8 Other specified disorders of the skin and subcutaneous tissue; L82.1 Other seborrheic keratosis; L57.8 Other skin changes due to chronic exposure to nonionizing radiation | CPT/HCPCS: 17000; 17110; 99213 ==

== ENCOUNTER → 2023-03-31 09:47 | Outpatient (BNVA) | payer MEDICARE, MEDICAID, SELFPAY | PROVIDERS: PCP Internal Medicine; Visit Provider Dermatology | DX: L72.0 Epidermal cyst (principal); D48.5 Neoplasm of uncertain behavior of skin | CPT/HCPCS: 11104; 99212 ==

== ENCOUNTER → 2023-04-13 10:28 | Outpatient (BNVA) | payer MEDICARE, MEDICAID, SELFPAY | PROVIDERS: PCP Internal Medicine; Visit Provider Dermatology | DX: Z48.02 Encounter for removal of sutures (principal) | CPT/HCPCS: 99212 ==

== ENCOUNTER → 2023-09-03 10:47 | Outpatient (BNVA) | payer MEDICARE, MEDICAID, SELFPAY | PROVIDERS: PCP Internal Medicine; Visit Provider Nurse Practitioner Family | DX: L91.8 Other hypertrophic disorders of the skin (principal); Z85.828 Personal history of other malignant neoplasm of skin; L57.0 Actinic keratosis; B07.8 Other viral warts; L72.0 Epidermal cyst | CPT/HCPCS: 17000; 17110; 99213 ==

== ENCOUNTER → 2023-12-09 09:42 | Outpatient (BNVA) | payer MEDICARE, MEDICAID, SELFPAY | PROVIDERS: PCP Internal Medicine; Visit Provider Nurse Practitioner Family | DX: L57.0 Actinic keratosis (principal); L57.8 Other skin changes due to chronic exposure to nonionizing radiation; L98.8 Other specified disorders of the skin and subcutaneous tissue; L82.1 Other seborrheic keratosis; L90.5 Scar conditions and fibrosis of skin; D23.72 Other benign neoplasm of skin of left lower limb, including hip; Z85.828 Personal history of other malignant neoplasm of skin | CPT/HCPCS: 17000; 99213 ==

== ENCOUNTER 2024-03-01 13:41 | Outpatient (CLI) | payer MEDICARE, MEDICAID, SELFPAY ==
--- NOTE | 2024-03-01 13:49 | XR_ITS ---
WS: [id number] Exam: XR ankle RT min 3V* [id number] Date/Time of Exam: 03/01/2024 2:05 PM Reason For Exam: PAIN IN R ANKLE No acute fracture. The ankle mortise is intact. Deformity of the medial malleolus that may be seconda ry to prior trauma. Normal soft tissues. XR/XR ankle RT min 3V* [id number] IMPRESSION: 1. No acute fracture.
--- NOTE | 2024-03-01 13:49 | XR_ITS ---
WS: [id number] Exam: XR tibia fibula RT 2V [id number] Date/Time of Exam: 03/01/2024 2:05 PM Reason For Exam: PAIN IN R LOWER LEG No fracture noted. Articular relationships at the knee and ankle appear normal. Unremarkable soft tis sues. XR/XR tibia fibula RT 2V [id number] IMPRESSION: 1. Negative RIGHT tibia and fibula.
== END 2024-03-01 13:42 | disposition home or self-care (01) ==
LOC: RAD 13:44
PROVIDERS: PCP Internal Medicine; Visit Provider Internal Medicine
DX: M25.571 Pain in right ankle and joints of right foot (principal); M79.661 Pain in right lower leg
CPT/HCPCS: 73590; 73610

== ENCOUNTER 2024-07-17 08:59 | Outpatient (CLI) | payer OTHER, MEDICAID, SELFPAY ==
--- NOTE | 2024-07-17 09:02 | MM_ITS ---
WS: [id number] BILATERAL SCREENING DIGITAL TOMOSYNTHESIS MAMMOGRAM WITH CAD HISTORY: SCREENING COMPARISON: 02/02/2023, 01/15/2022 Bilateral CC and MLO views with tomosynthesis and synthetic mammography submitted. Computer aided detection analyzed. Breast composition: There are scattered areas of fibroglandular density. No suspicious masses, microcalcifications or architectural distortion. Benign scattered calcifications in each breast. MM/MM scr BI tomosynthesis [id number] IMPRESSION: BI-RADS: 2 - Benign. FOLLOW UP: 1 Year Follow-up
== END 2024-07-17 09:00 | disposition home or self-care (01) ==
LOC: RAD 09:01
PROVIDERS: PCP Internal Medicine; Visit Provider Internal Medicine
DX: Z12.31 Encounter for screening mammogram for malignant neoplasm of breast (principal); R92.323 Mammographic fibroglandular density, bilateral breasts; R92.1 Mammographic calcification found on diagnostic imaging of breast
CPT/HCPCS: 77063; 77067

== ENCOUNTER 2024-09-10 10:52 | Emergency (ER) | payer OTHER, MEDICAID, SELFPAY ==
--- NOTE | 2024-09-10 10:54 | XRR_ITS ---
PROCEDURE INFORMATION: Exam: XR Chest Exam date and time: 09/10/2024 11:29 AM Age: 59 years old Clinical indication: Cough; Additional info: Cough; Fever; Chest congestion TECHNIQUE: Imaging protocol: Radiologic exam of the chest. Views: 1 view. COMPARISON: CR XR chest 1V portable [id number] 06/28/2022 7:52 AM FINDINGS: Lungs: Unremarkable. No consolidation or mass. Pleural spaces: Unremarkable. No pleural effusion. No pneumothorax. Heart/Mediastinum: Unremarkable. No cardiomegaly. Bones/joints: Unremarkable. XR/XR chest 1V portable [id number] IMPRESSION: No acute findings.
[2024-09-10 11:02] VITALS: BP 122/75; PULSE 68; RESP 16; TEMP 36.7; O2SAT 98; BMI 29.2
[2024-09-10 11:29] LABS: Basophils # 0.1 10^3/uL (0.0-0.1); Basophils % 0.8 %; Eosinophils # 0.6 10^3/uL (0.0-0.8); Eosinophils % 7.6 %; Hematocrit 37.6 % (36-47); Lymphocytes # 2.3 10^3/uL (0.8-4.8); Mean Corpuscular HGB Conc 31.6 g/dL (30-55); Mean Corpuscular Hemoglobin 30.1 pg (27-33); Mean Corpuscular Volume 95.2 fl (85-98); Monocytes # 0.7 10^3/uL (0.2-0.9); Monocytes % 9.4 %; Neutrophils # 3.79 10^3/uL (1.8-7.7); Neutrophils % 50.7 %; Nucleated Red Blood Cells % 0 %; Platelet Count 268 10^3/cmm (157-399); Red Blood Count 3.95 10^6/uL (3.85-5.65); Red Cell Distribution Width 12.6 % (12.1-15.1); White Blood Count 7.48 10^3/uL (3.29-11.43)
[2024-09-10 11:29] LABS: Rapid Strep A Test Negative (Negative)
--- NOTE | 2024-09-10 11:31 | W.ED.URI ---
HPI - URI/Sore Throat General: Chief Complaint: Upper Respiratory Infection Stated Complaint: cough, sore throat, diarrhea, congestion, fever Time Seen by Provider: 09/10/24 11:11 Source: patient Mode of arrival: ambulatory Limitations: no limitations History of Present Illness: 59-year-old female states over the last 2 weeks has been having cough congestion sore throats. She states she is coughed up some phlegm seems to worsen at night. She denies any fevers denies any vomiting or diarrhea denies any known sick contact Related Data Home Medications ?Medication ?Instructions ?Recorded ?Confirmed alprazolam 0.25 mg tablet (Xanax) 0.5 mg PO Q8H PRN Anxiety 01/30/20 06/11/22 propranolol 40 mg tablet 20 mg PO BID 01/30/20 06/11/22 tramadol 50 mg tablet 50 mg PO TID PRN Pain 06/18/20 06/11/22 venlafaxine 37.5 mg 37.5 mg PO 08/19/21 06/11/22 capsule,extended release 24 hr Previous Rx's ?Medication ?Instructions ?Recorded salicylic acid 40 % topical patch 1 applic topical .qdaily #20 ea 02/10/22 (Compound W) Allergies Allergy/AdvReac Type Severity Reaction Status Date / Time Sulfa (Sulfonamide Allergy hives Verified 06/11/22 10:54 Antibiotics) [facility] ED PFSH: Medical History Anxiety Chronic pain Depression Fibromyalgia Hemorrhoids History of nonmelanoma skin cancer Small fiber neuropathy Vitamin B12 deficiency Surgical History History of colonoscopy (02/19/21) banding of hemorrhoid x1 diverticulosis History of eye surgery socket- wires in place 1985 History of hysterectomy History of tonsillectomy 1966 Family History Mother Psychiatric illness Depression Migraines Thyroid disorder Father Cancer Lung Lung disease Social History Smoking and tobacco/nicotine status: former use of tobacco/nicotine Second hand smoke exposure: Yes Alcohol intake: never Substance/Drug Use: never Course Vital Signs: Vital signs: Vital Signs Temperature 98.1 F 09/10/24 11:02 Pulse Rate 68 09/10/24 11:02 Respiratory Rate 16 09/10/24 11:02 Blood Pressure 122/75 09/10/24 11:02 Pulse Oximetry 98 09/10/24 11:02 Oxygen Delivery Me thod Room Air 09/10/24 11:02 MDM - URI/Sore Throat Medical Decision Making Patient presents here with upper respiratory infection no signs of pneumonia she has been well-appearing here she stable for discharge follow-up PCP return if worsening. Medical Records I reviewed the patient's medical records. Lab Data I reviewed the patient's lab results. 09/10/24 11:25 09/10/24 11:25 Laboratory Results WBC 7.48 10^3/uL (3.29-11.43) 09/10/24 11: RBC 3.95 10^6/uL (3.85-5.65) 09/10/24 11:25 Hgb 11.90 g/dL (11.27-16.99) 09/10/24 11:25 Hct 37.6 % (36-47) 09/10/24 11:25 MCV 95.2 fl (85-98) 09/10/24 11:25 MCH 30.1 pg (27-33) 09/10/24 11:25 MCHC 31.6 g/dL (30-55) 09/10/24 11:25 RDW 12.6 % (12.1-15.1) 09/10/24 11:25 Plt Count 268 10^3/cmm (157-399) 09/10/24 11:25 MPV 10.0 fL (7.4-10.4) 09/10/24 11:25 Neut % (Auto) 50.7 % 09/10/24 11:25 Lymph % (Auto) 31.0 % 09/10/24 11:25 [place] % (Auto) 9.4 % 09/10/24 11:25 Eos % (Auto) 7.6 % 09/10/24 11:25 Baso % (Auto) 0.8 % 09/10/24 11:25 Neut # (Auto) 3.79 10^3/uL (1.8-7.7) 09/10/24 11:25 Lymph # (Auto) 2.3 10^3/uL (0.8-4.8) 09/10/24 11:25 [place] # (Auto) 0.7 10^3/uL (0.2-0.9) 09/10/24 11:25 Eos # (Auto) 0.6 10^3/uL (0.0-0.8) 09/10/24 11:25 Baso # (Auto) 0.1 10^3/uL (0.0-0.1) 09/10/24 11:25 Nucleated RBC % (auto) 0 % 09/10/24 11:25 Nucleated RBCs # 0.0 /100WBC 09/10/24 11:25 Sodium 142 mmol/L (136-145) 09/10/24 11:25 Potassium 4.5 mmol/L (3.5-5.1) 09/10/24 11:25 Chloride 104 mmol/L (98-107) 09/10/24 11:25 Carbon Dioxide 23 mmol/L (22-29) 09/10/24 11:25 Anion Gap 19.5 (5-19) H 09/10/24 11:25 BUN 3 mg/dL (8-23) L 09/10/24 11:25 Creatinine 0.6 mg/dL (0.5-0.9) 09/10/24 11:25 GFR Calculation 102.0 mL/min (90-130) 09/10/24 11:25 Glucose 91 mg/dL (65-115) 09/10/24 11:25 Calculated Osmolality 290 mOsm/kg (285-295) 09/10/24 11:25 Calcium 9.4 mg/dL (8.5-10.5) 09/10/24 11:25 Total Bilirubin 0.3 mg/dL (0.15-1.2) 09/10/24 11:25 AST 28 U/L (0-32) 09/10/24 11:25 ALT 50 U/L (0-33) H 09/10/24 11:25 Alkaline Phosphatase 145 U/L (35-105) H 09/10/24 11:25 Total Protein 7.1 g/dL (6.6-8.7) 09/10/24 11:25 Albumin 4.0 g/dL (3.5-5.2) 09/10/24 11:25 Globulin 3.1 g/dL (1.3-4.6) 09/10/24 11:25 Influenza A (PCR) Negative (Negative) 09/10/24 11:11 Influenza Type B (PCR) Negative (Negative) 09/10/24 11:11 RSV (PCR) Negative (Negative) 09/10/24 11:11 SARS-CoV-2 (PCR) Negative (Negative) 09/10/24 11:11 Group A Strep Rapid Negative (Negative) 09/10/24 11:11 All radiology interpretation(s) finalized by discharge ED provider radiology interpretation(s): cxr: no acute abnormality Discharge Plan Discharge Patient Disposition: Home Clinical Impression: Upper respiratory infection Condition: Stable Prescriptions: No Action propranolol 40 mg tablet 20 mg PO BID alprazolam [Xanax] 0.25 mg tablet 0.5 mg PO Q8H PRN (Reason: Anxiety) tramadol 50 mg tablet 50 mg PO TID PRN (Reason: Pain) venlafaxine 37.5 mg capsule,extended release 24hr 37.5 mg PO Compound W 40 % adhesive patch,medicated 1 applic topical .qdaily Qty: 20 2RF Rx Instructions: Apply nightly. May skip a night if becomes too tender Discharge Orders: Discharge ED (Routine); Ordered 09/10/24 Ordered By: Jesse De La Vega Referrals: Dolores Cuello MD [Primary Care Provider, Internal Medicine] - 4-7 days Discharge Diet: Advance as tolerated Discharge Activity: Resume usual activity Patient Instructions: Upper Respiratory Infection (ED) Print Language: Lao Coding Level of Care Code ED Sign [facility] for Joaquín Pratt
[2024-09-10 11:46] LABS: Alanine Aminotransferase 50 U/L (0-33); Alkaline Phosphatase 145 U/L (35-105); Anion Gap 19.5 (5-19); Aspartate Amino Transferase 28 U/L (0-32); Blood Urea Nitrogen 3 mg/dL (8-23); Calcium 9.4 mg/dL (8.5-10.5); Carbon Dioxide 23 mmol/L (22-29); Chloride 104 mmol/L (98-107); Creatinine Clr Calc Pharmacy 96.6123; Globulin 3.1 g/dL (1.3-4.6); Glucose 91 mg/dL (65-115); Osmolality Calculated 290 mOsm/kg (285-295); Potassium 4.5 mmol/L (3.5-5.1); Sodium 142 mmol/L (136-145); Total Bilirubin 0.3 mg/dL (0.15-1.2); Total Protein 7.1 g/dL (6.6-8.7)
[2024-09-10 11:51] LABS: Influenza A NEGATIVE (Negative); Influenza B NEGATIVE (Negative); Respiratory Syncytial Virus Ce NEGATIVE (Negative); SARS-CoV-2 PCR NEGATIVE (Negative)
[2024-09-10] MEDS: ketorolac 30 mg/mL INJ 15 MG IVP (11:52)
[2024-09-10] MEDS: dexamethasone 10 mg/mL INJ IVP (11:52)
[2024-09-10 12:25] VITALS: BP 138/82; PULSE 72; O2SAT 98
== END 2024-09-10 12:27 | disposition home or self-care (01) ==
PROVIDERS: Emergency Provider Emergency Medicine; PCP Internal Medicine
DX: J06.9 Acute upper respiratory infection, unspecified (principal); Z11.52 Encounter for screening for COVID-19; Z87.891 Personal history of nicotine dependence
CPT/HCPCS: 36415; 71045; 80053; 85025; 87081; 87637; 87880; 96374; 96375; 99284; J1100; J1885

== ENCOUNTER → 2024-10-03 10:35 | Outpatient (BNVA) | payer MEDICARE, MEDICAID, SELFPAY | PROVIDERS: PCP Internal Medicine; Visit Provider Nurse Practitioner Family | DX: L81.4 Other melanin hyperpigmentation (principal); L57.8 Other skin changes due to chronic exposure to nonionizing radiation; L82.1 Other seborrheic keratosis; D23.72 Other benign neoplasm of skin of left lower limb, including hip; L98.8 Other specified disorders of the skin and subcutaneous tissue; L90.5 Scar conditions and fibrosis of skin; Z08 Encounter for follow-up examination after completed treatment for malignant neoplasm; Z85.828 Personal history of other malignant neoplasm of skin; D48.5 Neoplasm of uncertain behavior of skin; L57.0 Actinic keratosis | CPT/HCPCS: 11102; 17000; 99213 ==

== ENCOUNTER → 2024-10-18 11:28 | Outpatient (BNVA) | payer MEDICARE, MEDICAID, SELFPAY | PROVIDERS: PCP Internal Medicine; Visit Provider Dermatology | DX: L82.1 Other seborrheic keratosis (principal); L81.4 Other melanin hyperpigmentation; Z08 Encounter for follow-up examination after completed treatment for malignant neoplasm; Z85.828 Personal history of other malignant neoplasm of skin; D03.62 Melanoma in situ of left upper limb, including shoulder | CPT/HCPCS: 11603; 12032; 99213 ==

== ENCOUNTER → 2025-02-12 11:04 | Outpatient (BNVA) | payer OTHER, MEDICAID, SELFPAY | PROVIDERS: PCP Internal Medicine; Visit Provider Dermatology | DX: L82.1 Other seborrheic keratosis (principal); L81.4 Other melanin hyperpigmentation; D22.5 Melanocytic nevi of trunk; Z85.828 Personal history of other malignant neoplasm of skin; Z08 Encounter for follow-up examination after completed treatment for malignant neoplasm; Z86.006 Personal history of melanoma in-situ; L82.0 Inflamed seborrheic keratosis; R20.8 Other disturbances of skin sensation; L53.8 Other specified erythematous conditions; L29.89 Other pruritus; L57.0 Actinic keratosis | CPT/HCPCS: 17000; 17110; 99213 ==

== ENCOUNTER 2025-02-21 07:27 | Outpatient (CLI) | payer OTHER, MEDICAID, SELFPAY ==
--- NOTE | 2025-02-21 07:33 | US_ITS ---
WS: [id number] RIGHT UPPER QUADRANT ULTRASOUND HISTORY: RUQ ABDOMINAL PAIN COMPARISON: 05/24/2017 Liver: 14.8 cm in length. Normal size liver and echogenicity. No bile duct dilatation or mass. Portal Vein: Normal hepatopetal flow with monophasic waveform. Gallbladder: Normally distended gallbladder with no stones or wall thickening. CBD: 0.2 cm Pancreas: Normal size and echogenicity. Right kidney: 10.1 cm in length. Normal size and echogenicity. No hydronephrosis or mass. Aorta and IVC: Unremarkable abdominal aorta and IVC. No ascites. US/US abdomen limited [id number] IMPRESSION: Normal right upper quadrant ultrasound.
== END 2025-02-21 07:28 | disposition home or self-care (01) ==
LOC: RAD 07:28
PROVIDERS: PCP Internal Medicine; Visit Provider Internal Medicine
DX: R10.11 Right upper quadrant pain (principal)
CPT/HCPCS: 76705